=== PATIENT | female | born 1940 | race Caucasian/White ===

== ENCOUNTER → 2023-10-23 09:44 | Outpatient (REF) | payer MEDICARE, SELFPAY ==
[2023-10-23 11:55] LABS: Hemoglobin 12.9 g/dL (12.0-16.0)
[2023-10-23 12:31] LABS: Albumin 3.6 g/dl (3.5-5.0); Blood Urea Nitrogen 46 mg/dl (7-17); Calcium 9.1 mg/dl (8.4-10.2); Carbon Dioxide 26 mmol/L (22-30); Chloride 106 mmol/L (98-107); Glucose 143 mg/dl (70-99); NT-proBNP 389 pg/ml; Potassium 3.9 mmol/L (3.5-5.1); Sodium 139 mmol/L (135-145); eGFR 27.61
== END ==
LOC: HWLAB 09:44
PROVIDERS: ATTENDING PHYSICIAN Specialist; FAMILY PHYSICIAN Family Medicine
DX: I10 Essential (primary) hypertension (principal); R80.9 Proteinuria, unspecified; N18.32 Chronic kidney disease, stage 3b; N02.2 Recurrent and persistent hematuria with diffuse membranous glomerulonephritis
CPT/HCPCS: 36415; 80048; 82040; 83880; 85018

== ENCOUNTER → 2024-02-12 11:28 | Outpatient (REF) | payer MEDICARE, SELFPAY ==
[2024-02-12 14:43] LABS: Blood Urea Nitrogen 59 mg/dl (7-17); Carbon Dioxide 31 mmol/L (22-30); Chloride 101 mmol/L (98-107); Glucose 96 mg/dl (70-99); Potassium 4.1 mmol/L (3.5-5.1); Sodium 140 mmol/L (135-145); eGFR 25.72
== END ==
LOC: HWLAB 11:28
PROVIDERS: ATTENDING PHYSICIAN Specialist; FAMILY PHYSICIAN Internal Medicine
DX: I10 Essential (primary) hypertension (principal); R80.9 Proteinuria, unspecified; E55.9 Vitamin D deficiency, unspecified
CPT/HCPCS: 36415; 80048

== ENCOUNTER → 2024-04-18 07:53 | Outpatient (REF) | payer MEDICARE, SELFPAY ==
[2024-04-18 10:43] LABS: ALT (SGPT) 27 U/L (0-35); AST (SGOT) 33 U/L (14-36); Albumin 3.8 g/dl (3.5-5.0); Alkaline Phosphatase 92 U/L (38-126); Blood Urea Nitrogen 50 mg/dl (7-17); Calcium 9.6 mg/dl (8.4-10.2); Carbon Dioxide 31 mmol/L (22-30); Chloride 105 mmol/L (98-107); Glucose 98 mg/dl (70-99); HDL Cholesterol 57 mg/dl; LDL Cholesterol, Calculated 133 mg/dl; Potassium 4.5 mmol/L (3.5-5.1); Sodium 140 mmol/L (135-145); Total Bilirubin 0.7 mg/dl (0.2-1.3); Total Cholesterol 220 mg/dl (50-199); Total Protein 6.1 g/dl (6.3-8.2); Triglyceride 152 mg/dl (10-149); Very Low Density Lipoprotein 30 mg/dl (0-30); eGFR 24.18
[2024-04-18 11:13] LABS: Glycohemoglobin (HgbA1c) 5.8 % (4.0-5.6)
== END ==
LOC: HWLAB 07:53
PROVIDERS: ATTENDING PHYSICIAN Family Medicine
DX: E78.00 Pure hypercholesterolemia, unspecified (principal); R73.01 Impaired fasting glucose
CPT/HCPCS: 36415; 80053; 80061; 83036